=== PATIENT | male | born 1990 | race Caucasian/White ===

== ENCOUNTER 2020-08-19 08:45 | Outpatient (CLI) | payer OTHER ==
[~2020-08-19 08:45] MED LIST: ACIDOPHILUS1 EAC3 PO; AMOX1TAB12 PO; KETO10TA2 PO; ULTRACET PO
== END 2020-08-19 09:14 | disposition home or self-care (01) ==
LOC: TOM 08:45
PROVIDERS: ATTEND Internal Medicine Gastroenterology
DX: K76.89 Other specified diseases of liver (principal); D18.03 Hemangioma of intra-abdominal structures